=== PATIENT | female | born 1985 | race Asian ===

== ENCOUNTER → 2025-04-30 | Outpatient (CLI) | payer BC, SELFPAY ==
--- NOTE | 2025-04-30 11:00 | XR_ITS ---
Examination: Thyroid sonography complete TECHNIQUE: Grayscale sonographic images thyroid lobes Date and time: April 30, 2025 1136 hours INDICATIONS: Elevated thyroid function tests on laboratory examination one month ago. FINDINGS: Right thyroid 4.8 cm Lower pole nodule 9 x 10 x 8 mm Left thyroid 4.1 cm Upper pole nodule 5 x 5 mm Midpole cyst 5 x 5 mm IMPRESSION: Thyroid nodules as above Given the patient's presentation, consider correlation with oral I-123 thyroid uptake and scan
--- NOTE | 2025-04-30 11:30 | XR_ITS ---
Examination: Abdomen sonogram, complete Date and time of exam: April 30, 2025 1146 hours INDICATIONS: Elevated liver enzymes on laboratory examination one month ago. Technique: Multiple real-time grayscale transabdominal sonographic images of the abdomen have been obtained. Findings: Normal gallbladder Normal common bile duct 0.3 cm Pancreatic head 2.1 cm Aorta not enlarged. Liver 18 cm fatty infiltration Normal hepatopedal portal venous flow Patent IVC Right kidney 11.5 cm cortex 1.7 cm Left kidney 11.7 cm cortex 2.3 cm Mild bilateral renal parenchymal scar formation Spleen 9.2 cm IMPRESSION:: Normal gallbladder Moderate hepatomegaly with fatty infiltration
== END | disposition home or self-care (01) ==
PROVIDERS: PCP Student in an Organized Health Care Education/Training Program; Referring Provider Student in an Organized Health Care Education/Training Program; Visit Provider Student in an Organized Health Care Education/Training Program
DX: E04.2 Nontoxic multinodular goiter (principal); K76.0 Fatty (change of) liver, not elsewhere classified
CPT/HCPCS: 76536; 76700